=== PATIENT | male | born 1965 | race Caucasian/White ===

== ENCOUNTER 2022-08-08 12:27 | Inpatient (IN) | payer MEDICAID ==
[~2022-08-08] VITALS: Ht 172.7 cm; Wt 78.1 kg
[2022-08-08 17:29] LABS: BASOPHILS % 0.2 % (0.0-2.0); EOSINOPHILS % 0.1 % (0.0-5.0); HEMATOCRIT. 45.6 % (42.0-52.0); HEMOGLOBIN. 15.5 g/dL (14.0-18.0); LYMPHOCYTES % 14.5 % (20.0-50.0); MEAN CORPUSCULAR HEMOGLOBIN 29.3 pg (28.0-32.0); MEAN PLATELET VOLUME 7.4 fl (7.4-10.4); MONOCYTES % 4.5 % (2.0-8.0); NEUTROPHILS % 80.7 % (40.0-76.0); PLATELET 406 x1000/uL (130-400); RED BLOOD CELL COUNT 5.31 mill/uL (4.7-6.1); RED CELL DISTRIBUTION WIDTH 13.6 % (11.6-14.6)
[2022-08-08 17:35] LABS: CHLORIDE 102 mEq/L (98-107)
[2022-08-08 17:41] LABS: PROTHROMBIN TIME 10.9 sec (9.6-11.0)
[2022-08-08 17:43] LABS: ETHANOL BLOOD < 10 mg/dL
[2022-08-08 19:07] LABS: CLARITY URINE CLEAR (CLEAR); COLOR URINE DARK YELLOW (YELLOW); KETONES URINE TRACE (NEGATIVE); LEUKOCYTE ESTERASE URINE TRACE (NEGATIVE); NITRITE URINE NEGATIVE (NEGATIVE); OCCULT BLOOD URINE NEGATIVE (NEGATIVE); PH URINE 5.5 (4.5-8.0); PROTEIN URINE 1+ (NEGATIVE); SPECIFIC GRAVITY URINE 1.035 (1.005-1.030)
[2022-08-08] MEDS ORDERED: MORPHINE SULFATE 4 MG/ML CPJ (NOT FOR IM USE) IV NR (19:15)
[2022-08-08] MEDS ORDERED: IOHEXOL-300 100 ML BOTTLE ONE (20:33)
[2022-08-08] MEDS ORDERED: METRONIDAZOLE 500 MG PREMIX 100 ML IV ONE (22:45)
[2022-08-08] MEDS ORDERED: CEFTRIAXONE 1GM PREMIX 50 ML IV ONE (22:45)
[2022-08-08] MEDS ORDERED: MORPHINE SULFATE 4 MG/ML CPJ (NOT FOR IM USE) IV ONE (23:00)
[2022-08-08] MEDS ORDERED: ONDANSETRON HCL 4MG/2ML INJ IV ONE (23:00)
[2022-08-09 00:45] VITALS: BP 181/93
[2022-08-09] MEDS: MORPHINE SULFATE 2 MG/ML CPJ (NOT FOR IM USE) IV PRN ×6 (02:50→22:00)
[2022-08-09] MEDS: SODIUM CHLORIDE 0.9% 1,000 ML IV SCH ×2 (05:48→21:59)
[2022-08-09 07:16] LABS: BASOPHILS % 0.1 % (0.0-2.0); EOSINOPHILS % 0.1 % (0.0-5.0); HEMATOCRIT. 44.1 % (42.0-52.0); HEMOGLOBIN. 15.1 g/dL (14.0-18.0); LYMPHOCYTES % 12.5 % (20.0-50.0); MEAN CORPUSCULAR HEMOGLOBIN 29.6 pg (28.0-32.0); MEAN CORPUSCULAR VOLUME 86.3 fL (80.0-94.0); MEAN PLATELET VOLUME 7.7 fl (7.4-10.4); MONOCYTES % 6.4 % (2.0-8.0); NEUTROPHILS % 80.9 % (40.0-76.0); PLATELET 377 x1000/uL (130-400); RED BLOOD CELL COUNT 5.11 mill/uL (4.7-6.1)
[2022-08-09 08:00] VITALS: BP 148/78
[2022-08-09 08:27] LABS: CHLORIDE 103 mEq/L (98-107)
[2022-08-09] MEDS: ENOXAPARIN 40MG/0.4ML SYR SUBCUT SCH (09:11)
[2022-08-09 12:00] VITALS: BP 150/83
[2022-08-09] MEDS ORDERED: METOCLOPRAMIDE HCL 10MG/2ML VIAL IV NR ×3 (13:00→20:30)
[2022-08-09] MEDS ORDERED: CEFTRIAXONE 1,000 MG in DEXTROSE 5% WATER 50 ML IV SCH (13:00)
[2022-08-09] MEDS ORDERED: SORBITOL 70% SOLN 30ML PO NR ×3 (13:00→21:00)
[2022-08-09] MEDS: BISACODYL 5MG TABLET PO NR ×2 (13:00→13:52)
[2022-08-09] MEDS: POTASSIUM CHLORIDE 20MEQ TABLET SR PO NR ×2 (13:15→13:52)
[2022-08-09 13:35] LABS: TOTAL IRON BINDING CAPACITY 342 ug/dL (250-450)
[2022-08-09] MEDS: METRONIDAZOLE 500 MG PREMIX 100 ML IV SCH ×2 (13:51→21:04)
[2022-08-09 13:59] LABS: FOLIC ACID (FOLATE) SERUM 6.5 ng/mL (>5.38)
[2022-08-09] MEDS: ONDANSETRON HCL 4MG/2ML INJ IV PRN ×2 (14:04→21:59)
[2022-08-09] MEDS ORDERED: BISACODYL 5MG TABLET PO NR ×3 (15:40→20:30)
[2022-08-09] MEDS ORDERED: POTASSIUM CHLORIDE 20MEQ TABLET SR PO NR ×2 (15:46→17:15)
[2022-08-09 16:00] VITALS: BP 131/74
[2022-08-09] MEDS ORDERED: NALOXONE HCL 0.4MG/ML VIAL IV PRN (18:00)
[2022-08-09] MEDS ORDERED: NA PHOS,M-B/NA PHOS,DI-BA ENEMA 118ML PR NR (18:30)
[2022-08-09 20:00] VITALS: BP 151/83
[2022-08-09] MEDS: CEFTRIAXONE 1GM PREMIX 50 ML IV SCH (22:00)
[2022-08-10] VITALS: BP 148/66
[2022-08-10] MEDS: MORPHINE SULFATE 2 MG/ML CPJ (NOT FOR IM USE) IV PRN ×5 (01:07→20:42)
[2022-08-10 03:02] LABS: BASOPHILS % 0.1 % (0.0-2.0); HEMOGLOBIN. 14.5 g/dL (14.0-18.0); LYMPHOCYTES % 11.7 % (20.0-50.0); MEAN CORPUSCULAR HEMOGLOBIN 29.1 pg (28.0-32.0); MEAN CORPUSCULAR VOLUME 86.5 fL (80.0-94.0); MEAN PLATELET VOLUME 7.5 fl (7.4-10.4); MONOCYTES % 6.9 % (2.0-8.0); NEUTROPHILS % 81.3 % (40.0-76.0); PLATELET 373 x1000/uL (130-400); RED BLOOD CELL COUNT 4.97 mill/uL (4.7-6.1); RED CELL DISTRIBUTION WIDTH 13.9 % (11.6-14.6)
[2022-08-10 03:10] LABS: PROTHROMBIN TIME 10.9 sec (9.6-11.0)
[2022-08-10 03:25] LABS: CHLORIDE 105 mEq/L (98-107)
[2022-08-10] MEDS: ONDANSETRON HCL 4MG/2ML INJ IV PRN (03:38)
[2022-08-10] MEDS: METRONIDAZOLE 500 MG PREMIX 100 ML IV SCH ×3 (05:31→21:02)
[2022-08-10 06:00] VITALS: BP 149/87
[2022-08-10] MEDS: KETOROLAC 15MG/ML VIAL IV PRN (06:52)
[2022-08-10 08:00] VITALS: BP 131/84
[2022-08-10] MEDS ORDERED: KCL 20MEQ/100ML PREMIX 100 ML IV SCH (10:00)
[2022-08-10] MEDS ORDERED: NA PHOS,M-B/NA PHOS,DI-BA ENEMA 118ML PR NR ×3 (10:30→13:30)
[2022-08-10] MEDS: POTASSIUM CHLORIDE INJ 30 MEQ in DEXT 5%/0.9% NACL 1,000 ML IV SCH ×2 (11:07→21:01)
[2022-08-10 12:00] VITALS: BP 149/83
[2022-08-10] MEDS ORDERED: PROPOFOL 200MG/20ML VIAL IV ONE ×2 (16:56→17:45)
[2022-08-10] MEDS ORDERED: LIDOCAINE HCL 1% 10 MG/ML 10ML VIAL ONE (17:01)
[2022-08-10] MEDS ORDERED: KETOROLAC 30MG/ML VIAL ONE (17:44)
[2022-08-10] MEDS ORDERED: HYDRALAZINE 20MG/ML VIAL ONE (17:46)
[2022-08-10] MEDS ORDERED: ONDANSETRON HCL 4MG/2ML INJ IV PRN (18:15)
[2022-08-10] MEDS ORDERED: SODIUM CHLORIDE 0.9% 1,000 ML IV ONE (18:15)
[2022-08-10] MEDS ORDERED: HYDROMORPHONE HCL/PF 2MG/ML CPJ IV PRN (18:15)
[2022-08-10 20:00] VITALS: BP 141/78
[2022-08-10] MEDS: CEFTRIAXONE 1GM PREMIX 50 ML IV SCH (21:53)
[2022-08-11] VITALS: BP 140/82
[2022-08-11] MEDS: KETOROLAC 15MG/ML VIAL IV PRN (00:04)
[2022-08-11] MEDS: POTASSIUM CHLORIDE INJ 30 MEQ in DEXT 5%/0.9% NACL 1,000 ML IV SCH ×2 (03:37→16:07)
[2022-08-11] MEDS: MORPHINE SULFATE 2 MG/ML CPJ (NOT FOR IM USE) IV PRN ×3 (03:38→12:24)
[2022-08-11 04:00] VITALS: BP 156/85
[2022-08-11] MEDS: METRONIDAZOLE 500 MG PREMIX 100 ML IV SCH ×3 (04:58→21:05)
[2022-08-11 08:00] VITALS: BP 161/87
[2022-08-11 08:11] LABS: CREATINE KINASE 69 IU/L (39-308)
[2022-08-11] MEDS ORDERED: BUPIVACAINE HCL/PF 0.5% (5MG/ML) 10ML ONE (11:46)
[2022-08-11 11:55] VITALS: BP 175/95
[2022-08-11] MEDS ORDERED: FENTANYL CITRATE/PF 50MCG/ML 2ML VIAL ONE (12:58)
[2022-08-11] MEDS ORDERED: ROCURONIUM BROMIDE 10MG/ML VIAL 5ML IV ONE (12:58)
[2022-08-11] MEDS ORDERED: MIDAZOLAM HCL 2 MG/2 ML VIAL ONE (12:58)
[2022-08-11] MEDS ORDERED: PROPOFOL 200MG/20ML VIAL IV ONE (12:58)
[2022-08-11] MEDS ORDERED: ONDANSETRON HCL 4MG/2ML INJ IV PRN (14:00)
[2022-08-11] MEDS ORDERED: FENTANYL CITRATE/PF 50MCG/ML 2ML VIAL IV PRN (14:00)
[2022-08-11] MEDS ORDERED: HYDROMORPHONE HCL/PF 2MG/ML CPJ IV PRN (14:00)
[2022-08-11] MEDS ORDERED: NEOSTIGMINE METHYLSULFATE 1MG/ML 10 ML VIAL ONE (14:02)
[2022-08-11] MEDS ORDERED: GLYCOPYRROLATE 0.2 MG/ML 2ML VIAL ONE (14:03)
[2022-08-11] MEDS ORDERED: ONDANSETRON HCL 4MG/2ML INJ ONE (14:04)
[2022-08-11] MEDS ORDERED: KETOROLAC 30MG/ML VIAL ONE (14:04)
[2022-08-11] MEDS ORDERED: HYDROCODONE/ACETAMINOPHEN 5/325MG TABLET PO PRN ×2 (14:15)
[2022-08-11 16:00] VITALS: BP 158/95
[2022-08-11] MEDS: DEXT 5%/0.45% NACL KCL 20MEQ/L 1,000 ML IV SCH (16:17)
[2022-08-11 20:00] VITALS: BP 144/80
[2022-08-11] MEDS: CEFTRIAXONE 1GM PREMIX 50 ML IV SCH (22:14)
[2022-08-12] VITALS: BP 139/76
[2022-08-12] MEDS: DEXT 5%/0.45% NACL KCL 20MEQ/L 1,000 ML IV SCH ×3 (01:00→21:16)
[2022-08-12 04:00] VITALS: BP 147/73
[2022-08-12] MEDS: METRONIDAZOLE 500 MG PREMIX 100 ML IV SCH ×3 (05:54→21:16)
[2022-08-12 05:59] LABS: BASOPHILS % 0.2 % (0.0-2.0); EOSINOPHILS % 0.8 % (0.0-5.0); HEMATOCRIT. 36.9 % (42.0-52.0); HEMOGLOBIN. 12.5 g/dL (14.0-18.0); LYMPHOCYTES % 20.3 % (20.0-50.0); MEAN CORPUSCULAR HEMOGLOBIN 29.4 pg (28.0-32.0); MEAN CORPUSCULAR VOLUME 86.7 fL (80.0-94.0); MEAN PLATELET VOLUME 7.7 fl (7.4-10.4); MONOCYTES % 10.2 % (2.0-8.0); NEUTROPHILS % 68.5 % (40.0-76.0); PLATELET 351 x1000/uL (130-400); RED BLOOD CELL COUNT 4.25 mill/uL (4.7-6.1); RED CELL DISTRIBUTION WIDTH 14.2 % (11.6-14.6)
[2022-08-12 08:00] VITALS: BP 160/88
[2022-08-12 08:42] LABS: CHLORIDE 104 mEq/L (98-107)
[2022-08-12] MEDS ORDERED: CEFTRIAXONE 1,000 MG in DEXTROSE 5% WATER 50 ML IV SCH (10:15)
[2022-08-12 12:00] VITALS: BP 150/89
[2022-08-12] MEDS: POTASSIUM CHLORIDE 20MEQ TABLET SR PO SCH (14:05)
[2022-08-12 16:00] VITALS: BP 136/72
[2022-08-12] MEDS: THROAT LOZENGES-BENZOCAINE/MENTH/CETYLPYRD CL LOZENGES MM PRN (17:42)
[2022-08-12 20:00] VITALS: BP 150/86
[2022-08-12] MEDS: CEFTRIAXONE 1,000 MG in DEXTROSE 5% WATER 50 ML IV SCH (21:16)
[2022-08-12] MEDS: MORPHINE SULFATE 4 MG/ML CPJ (NOT FOR IM USE) IV PRN (21:17)
[2022-08-13] VITALS: BP 122/69
[2022-08-13 04:00] VITALS: BP 155/82
[2022-08-13] MEDS: METRONIDAZOLE 500 MG PREMIX 100 ML IV SCH ×3 (05:12→20:55)
[2022-08-13] MEDS: DEXT 5%/0.45% NACL KCL 20MEQ/L 1,000 ML IV SCH (05:13)
[2022-08-13] MEDS: MORPHINE SULFATE 4 MG/ML CPJ (NOT FOR IM USE) IV PRN (05:31)
[2022-08-13 06:57] LABS: BASOPHILS % 0.2 % (0.0-2.0); EOSINOPHILS % 1.5 % (0.0-5.0); HEMATOCRIT. 37.9 % (42.0-52.0); HEMOGLOBIN. 12.8 g/dL (14.0-18.0); LYMPHOCYTES % 16.7 % (20.0-50.0); MEAN CORPUSCULAR HEMOGLOBIN 29.1 pg (28.0-32.0); MEAN CORPUSCULAR VOLUME 86.1 fL (80.0-94.0); MEAN PLATELET VOLUME 7.5 fl (7.4-10.4); MONOCYTES % 9.6 % (2.0-8.0); PLATELET 381 x1000/uL (130-400); RED CELL DISTRIBUTION WIDTH 13.6 % (11.6-14.6)
[2022-08-13 07:06] LABS: CHLORIDE 100 mEq/L (98-107)
[2022-08-13 07:53] VITALS: BP 168/84
[2022-08-13] MEDS: POTASSIUM CHLORIDE 20MEQ TABLET SR PO SCH (09:03)
[2022-08-13] MEDS: THROAT LOZENGES-BENZOCAINE/MENTH/CETYLPYRD CL LOZENGES MM PRN (09:07)
[2022-08-13 12:00] VITALS: BP 174/93
[2022-08-13] MEDS: AMLODIPINE 5MG TABLET PO SCH (12:31)
[2022-08-13 16:29] VITALS: BP 146/72
[2022-08-13 20:00] VITALS: BP 144/79
[2022-08-13] MEDS: CEFTRIAXONE 1,000 MG in DEXTROSE 5% WATER 50 ML IV SCH (20:55)
[2022-08-13] MEDS: MORPHINE SULFATE 2 MG/ML CPJ (NOT FOR IM USE) IV PRN (20:57)
[2022-08-13] MEDS ORDERED: POTASSIUM CHLORIDE 20MEQ TABLET SR PO NR (21:00)
[2022-08-14] VITALS: BP 150/82
[2022-08-14 03:35] VITALS: BP 152/77
[2022-08-14] MEDS: ONDANSETRON HCL 4MG/2ML INJ IV PRN ×2 (03:55→08:48)
[2022-08-14] MEDS: METRONIDAZOLE 500 MG PREMIX 100 ML IV SCH (05:04)
[2022-08-14 08:00] VITALS: BP 141/88
[2022-08-14] MEDS: AMLODIPINE 5MG TABLET PO SCH (08:48)
[2022-08-14] MEDS: POTASSIUM CHLORIDE 20MEQ TABLET SR PO SCH (08:49)
[2022-08-14] MEDS: MORPHINE SULFATE 2 MG/ML CPJ (NOT FOR IM USE) IV PRN (08:49)
[2022-08-14] MEDS ORDERED: POTASSIUM CHLORIDE 20MEQ TABLET SR PO SCH (09:00)
[2022-08-14 12:00] VITALS: BP 149/84
[2022-08-14] MEDS ORDERED: ACETAMINOPHEN 325MG TABLET PO PRN (13:15)
[2022-08-14] MEDS ORDERED: METOCLOPRAMIDE HCL 10MG/2ML VIAL IV SCH (18:00)
[2022-08-14 20:00] VITALS: BP 150/84
[2022-08-14] MEDS: DEXT 5%/0.9% NACL 1,000 ML IV SCH (21:25)
[2022-08-15] VITALS: BP 149/82
[2022-08-15 04:00] VITALS: BP 151/85
[2022-08-15] MEDS: MORPHINE SULFATE 2 MG/ML CPJ (NOT FOR IM USE) IV PRN ×2 (05:25→07:57)
[2022-08-15 07:38] LABS: BASOPHILS % 0.4 % (0.0-2.0); EOSINOPHILS % 1.3 % (0.0-5.0); HEMATOCRIT. 39.5 % (42.0-52.0); HEMOGLOBIN. 13.9 g/dL (14.0-18.0); LYMPHOCYTES % 18.7 % (20.0-50.0); MEAN CORPUSCULAR HEMOGLOBIN 30.1 pg (28.0-32.0); MEAN CORPUSCULAR VOLUME 85.7 fL (80.0-94.0); MEAN PLATELET VOLUME 7.5 fl (7.4-10.4); MONOCYTES % 14.4 % (2.0-8.0); NEUTROPHILS % 65.2 % (40.0-76.0); PLATELET 497 x1000/uL (130-400); RED BLOOD CELL COUNT 4.61 mill/uL (4.7-6.1); RED CELL DISTRIBUTION WIDTH 13.6 % (11.6-14.6)
[2022-08-15 07:54] VITALS: BP 146/92
[2022-08-15] MEDS: ONDANSETRON HCL 4MG/2ML INJ IV PRN (07:56)
[2022-08-15] MEDS: POTASSIUM CHLORIDE 20MEQ TABLET SR PO SCH (09:00)
[2022-08-15] MEDS: AMLODIPINE 5MG TABLET PO SCH (09:00)
[2022-08-15 09:25] LABS: CHLORIDE 98 mEq/L (98-107)
[2022-08-15] MEDS ORDERED: DIATR MEGLU/DIATRIZOATE SOLN 120ML ONE (10:25)
[2022-08-15 11:48] VITALS: BP 136/82
[2022-08-15] MEDS: DEXT 5%/0.9% NACL 1,000 ML IV SCH (12:33)
[2022-08-15] MEDS: SODIUM CHLORIDE 0.9% 1,000 ML IV SCH (15:10)
[2022-08-15] MEDS: LACTULOSE 20G/30ML UDC PO SCH ×2 (15:10→20:51)
[2022-08-15 16:00] VITALS: BP 138/76
[2022-08-15 20:00] VITALS: BP 125/77
[2022-08-16] VITALS: BP 132/80
[2022-08-16] MEDS: MORPHINE SULFATE 2 MG/ML CPJ (NOT FOR IM USE) IV PRN (01:26)
[2022-08-16 04:00] VITALS: BP 127/76
[2022-08-16] MEDS: LACTULOSE 20G/30ML UDC PO SCH ×2 (06:24→13:00)
[2022-08-16 08:00] VITALS: BP 135/77
[2022-08-16] MEDS: ENOXAPARIN 40MG/0.4ML SYR SUBCUT SCH (09:27)
[2022-08-16] MEDS: POTASSIUM CHLORIDE 20MEQ TABLET SR PO SCH (09:27)
[2022-08-16] MEDS: AMLODIPINE 5MG TABLET PO SCH (09:28)
[2022-08-16] MEDS: SODIUM CHLORIDE 0.9% 1,000 ML IV SCH ×2 (09:29→11:00)
[2022-08-16 12:00] VITALS: BP 124/71
[2022-08-16] MEDS ORDERED: HYDROCODONE/ACETAMINOPHEN 5/325MG TABLET PO PRN ×2 (14:30)
[2022-08-16 16:00] VITALS: BP 116/73
[2022-08-16 20:00] VITALS: BP 104/65
[2022-08-17] VITALS: BP 112/67
[2022-08-17 04:00] VITALS: BP 130/81
[2022-08-17 05:53] LABS: BASOPHILS % 0.4 % (0.0-2.0); EOSINOPHILS % 2.7 % (0.0-5.0); HEMATOCRIT. 36.9 % (42.0-52.0); HEMOGLOBIN. 12.8 g/dL (14.0-18.0); LYMPHOCYTES % 29.1 % (20.0-50.0); MEAN CORPUSCULAR HEMOGLOBIN 29.8 pg (28.0-32.0); MEAN CORPUSCULAR VOLUME 86.2 fL (80.0-94.0); MEAN PLATELET VOLUME 7.1 fl (7.4-10.4); MONOCYTES % 14.4 % (2.0-8.0); NEUTROPHILS % 53.4 % (40.0-76.0); PLATELET 508 x1000/uL (130-400); RED BLOOD CELL COUNT 4.29 mill/uL (4.7-6.1); RED CELL DISTRIBUTION WIDTH 13.5 % (11.6-14.6)
[2022-08-17 07:56] LABS: CHLORIDE 103 mEq/L (98-107)
[2022-08-17 08:00] VITALS: BP 131/73
[2022-08-17] MEDS: AMLODIPINE 5MG TABLET PO SCH (08:45)
[2022-08-17] MEDS: ENOXAPARIN 40MG/0.4ML SYR SUBCUT SCH (08:46)
[2022-08-17 12:00] VITALS: BP 111/69
[2022-08-17 12:50] VITALS: BP 131/73
== END 2022-08-17 16:40 | disposition home or self-care (01) | DRG 231 ==
LOC: ER 12:35 → 7WST 22:55 → EDBEDREQ 22:57 → EDBEDREQTM 22:57
PROVIDERS: ADMIT Internal Medicine Nephrology; ATTEND Internal Medicine Nephrology
PROC: 0DBN8ZX Excision of Sigmoid Colon, Via Natural or Artificial Opening Endoscopic, Diagnostic (ICD-10-PCS; 2022-08-10)
PROC: 0D1E0Z4 Bypass Large Intestine to Cutaneous, Open Approach (ICD-10-PCS; principal; 2022-08-11)
DX: K56.699 Other intestinal obstruction unspecified as to partial versus complete obstruction (principal); K76.0 Fatty (change of) liver, not elsewhere classified; E87.1 Hypo-osmolality and hyponatremia; K44.9 Diaphragmatic hernia without obstruction or gangrene; I10 Essential (primary) hypertension; K42.9 Umbilical hernia without obstruction or gangrene; E87.5 Hyperkalemia; E87.6 Hypokalemia; F41.9 Anxiety disorder, unspecified; N40.0 Benign prostatic hyperplasia without lower urinary tract symptoms; Z20.822 Contact with and (suspected) exposure to COVID-19
CPT/HCPCS: 36415; 71045; 74018; 74177; 74249; 76700; 80048; 80053; 80320; 81003; 82270; 82378; 82550; 82607; 82728; 82746; 83540; 83550; 83605; 83735; 85025; 85651; 87426; 88304; 99291; J0360; J0696; J1650; J1885; J2250; J2270; J2405; J2704; J2710; J2765; J3010; J3480; J3490; J7030; J7042; J7060; Q9963; Q9967; G0480

== ENCOUNTER 2023-01-01 12:38 | Emergency (ER) | payer MEDICAID ==
[~2023-01-01] VITALS: Ht 165.1 cm; Wt 75.0 kg
[2023-01-01 12:45] VITALS: BP 187/96; RESP 18; TEMP 98.5; O2SAT 97
[2023-01-01 12:50] VITALS: PULSE 73
[2023-01-01 14:15] LABS: BASOPHILS % 0.4 % (0.0-2.0); EOSINOPHILS % 1.9 % (0.0-5.0); HEMATOCRIT. 46.5 % (42.0-52.0); HEMOGLOBIN. 15.7 g/dL (14.0-18.0); LYMPHOCYTES % 34.1 % (20.0-50.0); MEAN CORPUSCULAR HGB CONC 33.9 g/dL (31.0-37.0); MEAN CORPUSCULAR VOLUME 88.7 fL (80.0-94.0); MEAN PLATELET VOLUME 7.7 fl (7.4-10.4); MONOCYTES % 7.4 % (2.0-8.0); NEUTROPHILS % 56.2 % (40.0-76.0); PLATELET 325 x1000/uL (130-400); RED BLOOD CELL COUNT 5.24 mill/uL (4.7-6.1); RED CELL DISTRIBUTION WIDTH 14.4 % (11.6-14.6); WHITE BLOOD COUNT 8.7 x1000/uL (4.5-11.0)
[2023-01-01 14:26] LABS: CHLORIDE 104 mEq/L (98-107); INDEX HEMOLYSI 1 (1-3); INDEX ICTERIC 1 (1-4); INDEX LIPEMIC 1 (1-3); POTASSIUM 3.8 mEq/L (3.5-5.1); SODIUM 137 mEq/L (136-145)
[2023-01-01 14:35] LABS: ALANINE AMINOTRANSFERASE 52 IU/L (13-61); ALBUMIN 3.7 g/dL (3.4-5.0); ASPARTATE AMINOTRANSFERASE 22 IU/L (15-37); BILIRUBIN TOTAL 0.7 mg/dL (0.1-1.0); CALCIUM 8.4 mg/dL (8.5-10.1); CARBON DIOXIDE 31 mEq/L (21-32); GLUCOSE 105 mg/dL (70-105); PROTEIN TOTAL 7.8 g/dL (6.0-8.3); UREA NITROGEN BLOOD 12 mg/dL (7-21)
== END 2023-01-01 15:30 | disposition home or self-care (01) ==
LOC: ER 12:38
DX: I10 Essential (primary) hypertension (principal)
CPT/HCPCS: 36415; 80053; 85025; 93005; 99284

== ENCOUNTER 2023-01-07 12:09 | Emergency (ER) | payer MEDICAID ==
[~2023-01-07] VITALS: Ht 165.1 cm; Wt 81.0 kg
[2023-01-07 12:18] VITALS: O2SAT 95
[2023-01-07 12:54] LABS: BASOPHILS % 0.4 % (0.0-2.0); EOSINOPHILS % 1.4 % (0.0-5.0); HEMATOCRIT. 44.5 % (42.0-52.0); HEMOGLOBIN. 15.2 g/dL (14.0-18.0); LYMPHOCYTES % 22.1 % (20.0-50.0); MEAN CORPUSCULAR HEMOGLOBIN 30.4 pg (28.0-32.0); MEAN CORPUSCULAR HGB CONC 34.2 g/dL (31.0-37.0); MEAN CORPUSCULAR VOLUME 88.9 fL (80.0-94.0); MEAN PLATELET VOLUME 7.5 fl (7.4-10.4); MONOCYTES % 6.6 % (2.0-8.0); NEUTROPHILS % 69.5 % (40.0-76.0); PLATELET 302 x1000/uL (130-400); RED CELL DISTRIBUTION WIDTH 14.1 % (11.6-14.6); WHITE BLOOD COUNT 10.4 x1000/uL (4.5-11.0)
[2023-01-07 12:57] LABS: CHLORIDE 106 mEq/L (98-107); INDEX HEMOLYSI 1 (1-3); INDEX ICTERIC 1 (1-4); INDEX LIPEMIC 1 (1-3); POTASSIUM 3.5 mEq/L (3.5-5.1); SODIUM 139 mEq/L (136-145)
[2023-01-07] MEDS ORDERED: AMLODIPINE 10MG TABLET PO ONE (13:00)
[2023-01-07 13:05] LABS: ALANINE AMINOTRANSFERASE 50 IU/L (13-61); ALBUMIN 3.7 g/dL (3.4-5.0); ASPARTATE AMINOTRANSFERASE 23 IU/L (15-37); BILIRUBIN TOTAL 0.7 mg/dL (0.1-1.0); CALCIUM 8.8 mg/dL (8.5-10.1); CARBON DIOXIDE 28 mEq/L (21-32); CREATININE 0.9 mg/dL (0.6-1.3); GLUCOSE 111 mg/dL (70-105); UREA NITROGEN BLOOD 12 mg/dL (7-21)
[2023-01-07 13:09] LABS: PROTEIN TOTAL 7.7 g/dL (6.0-8.3); TROPONIN I HIGH SENSITIVITY 8 ng/L (<78)
[2023-01-07] MEDS ORDERED: AMLODIPINE 5MG TABLET PO NR (13:15)
[2023-01-07] MEDS ORDERED: AMLO5TAB4 MT (17:04)
[2023-01-07 17:15] LABS: CLARITY URINE CLEAR (CLEAR); COLOR URINE YELLOW (YELLOW); GLUCOSE URINE NEGATIVE (NEGATIVE); KETONES URINE NEGATIVE (NEGATIVE); LEUKOCYTE ESTERASE URINE NEGATIVE (NEGATIVE); NITRITE URINE NEGATIVE (NEGATIVE); OCCULT BLOOD URINE NEGATIVE (NEGATIVE); PH URINE 5.5 (4.5-8.0); PROTEIN URINE NEGATIVE (NEGATIVE); SPECIFIC GRAVITY URINE 1.014 (1.005-1.030); UROBILINOGEN URINE 0.2 E.U./dL (0.2-1.0)
[2023-01-07 18:24] VITALS: BP 146/99; PULSE 62; RESP 19; TEMP 98
== END 2023-01-07 18:25 | disposition home or self-care (01) ==
LOC: ER 12:09
DX: I16.0 Hypertensive urgency (principal); I10 Essential (primary) hypertension; R51.9 Headache, unspecified
CPT/HCPCS: 36415; 71045; 80053; 81003; 84484; 85025; 93005; 99285

== ENCOUNTER 2023-09-22 10:32 | Emergency (ER) | payer MEDICAID ==
[~2023-09-22] VITALS: Ht 165.1 cm; Wt 78.5 kg
[~2023-09-22 10:32] MED LIST: AMLO5TAB4 MT; HYDR-4001 PO
[2023-09-22 10:59] VITALS: O2SAT 100
[2023-09-22 11:17] LABS: BASOPHILS % 0.4 % (0.0-2.0); HEMATOCRIT. 45.2 % (42.0-52.0); HEMOGLOBIN. 15.5 g/dL (14.0-18.0); LYMPHOCYTES % 32.6 % (20.0-50.0); MEAN CORPUSCULAR HEMOGLOBIN 29.6 pg (28.0-32.0); MEAN CORPUSCULAR HGB CONC 34.3 g/dL (31.0-37.0); MEAN CORPUSCULAR VOLUME 86.2 fL (80.0-94.0); MEAN PLATELET VOLUME 7.2 fl (7.4-10.4); MONOCYTES % 9.9 % (2.0-8.0); NEUTROPHILS % 55.1 % (40.0-76.0); PLATELET 339 x1000/uL (130-400); RED BLOOD CELL COUNT 5.24 mill/uL (4.7-6.1); RED CELL DISTRIBUTION WIDTH 14.5 % (11.6-14.6); WHITE BLOOD COUNT 8.5 x1000/uL (4.5-11.0)
[2023-09-22 11:22] LABS: CHLORIDE 102 mEq/L (98-107); SODIUM 141 mEq/L (136-145)
[2023-09-22 11:23] LABS: CALCIUM 10.1 mg/dL (8.7-10.4); CARBON DIOXIDE 32 mEq/L (21-32)
[2023-09-22 11:28] LABS: CREATININE 0.9 mg/dL (0.6-1.3); GLUCOSE 109 mg/dL (70-105); UREA NITROGEN BLOOD 12 mg/dL (9-23)
[2023-09-22] MEDS: CLONIDINE 0.1MG TABLET PO ONE (15:26)
[2023-09-22 15:27] VITALS: BP 189/98; PULSE 63; RESP 16; TEMP 98.4
== END 2023-09-22 15:28 | disposition home or self-care (01) ==
LOC: ER 11:00
DX: I10 Essential (primary) hypertension (principal); R51.9 Headache, unspecified; Z85.9 Personal history of malignant neoplasm, unspecified; Z98.890 Other specified postprocedural states
CPT/HCPCS: 36415; 80048; 85025; 99284